=== PATIENT | male | born 1960 | race Caucasian/White ===

== ENCOUNTER 2022-08-14 09:30 | Outpatient (RCR) | payer BC, SELFPAY ==
--- NOTE | 2022-07-21 11:08 | PTOPEVAL1 ---
Assessment and note entered by Claudette Ricardo, PT Evaluation Information Assessment Status Evaluation Diagnosis left knee pain Onset 03/2022 Subjective Information Since March shooting pain in knee, felt like someone sticking a knife in his knee but feels lots better since shot in knee Reported Pain Level Pain Score 3: Self Report Additional Pain Score Comments Pt reports pain stays at a 3/10. States prior to shot knee would pop out and pop right back in only sometimes with stepping on uneven ground, hitting just right Assessment PT Clinical Summary Pt presents w/ c/o L knee pain. Received a shot in his knee 07/12/2022 and reports feels significantly better. Cont to have pain that stays at a 3/10 with tenderness at and below medial jt line. During evaluation demo's mildly decreased range, mildly decreased strength, decreased LLE flexibility, mildly increased laxity with valgus testing, (-)Thessaly's and Willie's testing for meniscus, significant laterally tracking patella. Evaluation suggestive of medial patellotibial ligament and possible MCL irritation likely related to above deficits. Today pt was educated on findings, plan with therapy to address deficits addressed above with focus on improving patellar tracking. Also encouraged pt to use arch supports as with walking, his arches are noted to fall causing supination and increased valgus stress on his knees. Goals for patient are to reduce pain to 0/10, and allow him to return to high level activities such as pickle ball without pain or injury. Plan of Care Interventions Electrical Stimulation,Hot Pack/Cold Pack,Manual Therapy,Neuro Re-education,Patient/Caregiver Educati,Therapeutic Activities,Therapeutic Exercise,Ultrasound Other Interventions Taping for patellar tracking, body mechanics for high level acivities PT Services Indicated Yes Treatment Frequency and 2x weekly x 4 weeks Duration These treatments will address the objective and functional deficits as defined above. The patient will be advanced safely and appropriately in order for the patient to progress towards his/her prior level of function. Additional exercises will be introduced and as well as a comprehensive home exercise program upon discharge, if needed, ?to ensure carryover of functional gains achieved in the clinic. This treatment plan has been reviewed and agreement upon by the patient.
--- NOTE | 2022-08-15 17:19 | BUPTOPDC ---
Assessment and note entered by Claudette Ricardo, PT Discharge Information Assessment Status Discharge Diagnosis left knee pain Onset 03/2022 Subjective Information Reports cont to have the pain in the inside of the knee, popping has increased again over the weekend. Reports is wearing shoe inserts and has no pain with these. Reports maybe feels stronger with therapy. Less instances of the popping out then right back in but also hasn't been overly active with the weather cooling down and pickle ball season wrapping up Reported Pain Level Pain Score 3: Self Report Assessment PT Clinical Summary Pt presents w/ c/o L knee pain. Received a shot in his knee 07/12/2022 and reports feels significantly better. He has consistently attended therapy however reports pain cont to be a 3/10 most of the time. No longer has increased high levels of pain, reports feels he is stronger , has less instances of knee popping out and back in and demo's improved knee stability and strength in clinic with high level activities such as squats on BOSU ball, step up and down from varying step heights, and was able to somewhat mimc pickle ball activity with Wii Tennis in clinic. However, as he has not made progress for his pain, we are discharging him at this time and referring back to Ortho MD for further options.
== END 2022-09-06 15:47 | disposition home or self-care (01) ==
LOC: ANHHIPT 09:30
PROVIDERS: PCP Family Medicine Sports Medicine; Visit Provider Orthopaedic Surgery
DX: M25.562 Pain in left knee (principal)
CPT/HCPCS: 97014; 97110; 97112; 97140; 97161; 97530; G0283

== ENCOUNTER → 2022-09-29 07:48 | Outpatient (CLI) | payer BC, SELFPAY ==
--- NOTE | ~2022-09-29 | MR_ITS ---
EXAMINATION: MR knee LT wo con DATE: 09/29/2022 08:30 INDICATION: Left knee pain. TECHNIQUE: Magnetic resonance imaging (MRI) of the left knee was performed without intravenous contra st. Sequences included axial PD-weighted FS FSE, coronal PD-weighted FSE and PD-weighted FS FSE, sagi ttal PD-weighted FSE, and sagittal T2-weighted FS FSE. COMPARISON: Left knee radiographs 07/12/2022 FINDINGS: Medial compartment: There is a complex tear involving body and posterior horn of medial meniscus. There is full-thickness cartilage loss of tibial condyle involving the medial articular surface with mild subchondral edema- like marrow signal intensity. There is extensive partial thickness cartilage loss of femoral condyle and tibial condyle. There is full-thickness cartilage loss of femoral condyle involving the central a nd medial articular surface. Osteophytes are noted. Lateral compartment: Lateral meniscus is normal. There is cartilage surface irregularity of tibial condyle and femoral con dyle. Osteophytes are noted. Patellofemoral compartment: There is deep partial thickness cartilage loss of patellar medial facet and shallow partial-thickness cartilage loss of patellar lateral facet. There is partial-thickness cartilage loss of trochlea, hawk p at the central trochlea. Osteophytes are noted. Ligaments and tendons: Anterior cruciate ligament demonstrates increased signal intensity and some lax fibers, consistent wi th partial tear. Posterior cruciate ligament is normal. Medial collateral ligament is intact. There i s thickening of the iliotibial band with edema between the iliotibial band and lateral femoral condyl e, which may be seen with iliotibial band friction syndrome. There is mild patellar tendinopathy. Fluid: There is a moderate-sized knee joint effusion. There is a moderate-sized Gallagher's cyst. There is mild prepatellar and superficial infrapatellar bursitis. IMPRESSION: 1. Severe chondrosis of medial compartment, moderate chondrosis of patellofemoral compartment, and mi ld chondrosis of lateral compartment. 2. Tear of medial meniscus. 3. Partial tear of anterior cruciate ligament. 4. Iliotibial band friction syndrome. 5. Moderate-sized knee joint effusion. 6. Moderate-sized Gallagher's cyst. Reviewed, dictated and finalized at location A. NING PERSONNEL SUPERVISOR IMPRESSION: 1. Severe chondrosis of medial compartment, moderate chondrosis of patellofemor al compartment, and mild chondrosis of lateral compartment. 2. Tear of medial meniscus. 3. Partial tear of anterior cruciate ligament. 4. Iliotibial band friction syndrome. 5. Moderate-sized knee joint effusion. 6. Moderate-sized Gallagher's cyst.
== END ==
PROVIDERS: PCP Family Medicine Sports Medicine; Visit Provider Nurse Practitioner
DX: S83.242A Other tear of medial meniscus, current injury, left knee, initial encounter (principal); M25.462 Effusion, left knee; M71.22 Synovial cyst of popliteal space [Baker], left knee; S83.512A Sprain of anterior cruciate ligament of left knee, initial encounter
CPT/HCPCS: 73721

== ENCOUNTER 2022-11-06 08:03 | Outpatient (CLI) | payer BC, SELFPAY ==
[2022-11-06 09:49] LABS: Hemoglobin A1C 5.4 % (<5.7)
[2022-11-06 09:54] LABS: Urine Cotinine NEGATIVE
== END 2022-11-06 08:04 | disposition home or self-care (01) ==
PROVIDERS: PCP Family Medicine Sports Medicine; Visit Provider Orthopaedic Surgery
DX: Z01.812 Encounter for preprocedural laboratory examination (principal); M17.12 Unilateral primary osteoarthritis, left knee
CPT/HCPCS: 80307; 83036; 86850; 86900; 86901; 87081

== ENCOUNTER 2022-11-13 00:16 | Day surgery (SDC) | payer BC, SELFPAY ==
[2022-11-06 08:12] VITALS: BMI 33.1
--- NOTE | 2022-11-06 08:30 | PC.NURSE ---
Report to the Outpatient Waiting Room, entrance under the green pavilion located off [facility], at time __0600 on date __11/13/22 . Planned Procedure Time: _0730 . Time changes happen often and if your time is changed the preop area will call you the afternoon before. - You and your visitor will be asked to self-screen and do not enter if you have any COVID symptoms. - Only one visitor is requested with a max of two and NO children visitors are allowed at this time. - The patient visitor may be requested to leave or wait in car when not with patient due to distancing restrictions. - A mask is optional within the hospital. Patients may have clear liquids (water, carbonated beverages, clear teas, apple juice) until 3 hours prior to surgery with a maximum of 20 ounces. - No food from midnight until time of surgery - Infants may have breast milk until 4 hours before surgery, formula 6 hours prior to surgery. - Children will be allowed to drink immediately following surgery. If applicable, please bring a bottle or sippy cup to assist with drinking. Juice, water, soda, and popsicles are readily available. For infants on formula, please bring formula the day of surgery. Pacifiers are allowed. Take the following medications with a SIP of water the morning of surgery: NONE Medications to discontinue per physician ____TUMS 3 DAYS PRE OP LAST DOSE 11/09/22 Please no make-up, nail japanese, hairspray, perfume, deodorant, or body powder the day of surgery. No jewelry (including any body piercings) or valuables the day of surgery, leave them at home. Please take a shower or bath the night before, or the morning of, surgery with an antibacterial soap. Wear comfortable, loose fitting clothing. Children are encouraged to wear pajamas. - Jewelry must be removed prior to entering the operating room. Rings and piercings that are not removed may be cut off. - The hospital will not accept responsibility for valuables. - Please leave all valuables, including medications, at home the day of surgery. If you are going home after surgery, a licensed lifter driver must drive you home. - NO public transportation without another adult if you receive anesthesia. - We recommend that an adult stay with you for 24 hours following discharge. - We also recommend that you do not drive, make important decision, drink alcoholic beverages, or take any drugs that were not prescribed by your health care provider for at least 24 hours after your discharge time. Follow any additional instructions given to you from your surgeon. If you or anyone in your household have experienced Covid symptoms in the past week, please notify your surgeon or the nurse liaison at the phone number below for possible testing. VERBAL AND WRITTEN instructions given to PATIENT and asked if any additional questions and then verbalized understanding. Patient advised to call surgeon office or pre surgery nurse liaison [phone] if any additional questions.
[2022-11-06 08:41] VITALS: BP 168/90; PULSE 64; RESP 18; TEMP 36.7; O2SAT 99
[2022-11-13] VITALS (15 sets, daily range): BP systolic 110–157; BP diastolic 64–100; PULSE 65–87; RESP 10–20; TEMP 36.3–36.5; O2SAT 96–100
--- NOTE | ~2022-11-13 | XR_ITS ---
EXAMINATION: XR knee LT 2V DATE: 11/13/2022 10:31 INSTRUMENTATION TECH INDICATION: Left total knee arthroplasty TECHNIQUE: 2 views left knee FINDINGS: There is a left total knee arthroplasty in expected position. Subcutaneous gas with fluid and air in the joint are consistent with recent surgery. No evidence of periprosthetic fracture. IMPRESSION: 1. Recent left total knee arthroplasty. Reviewed, dictated and finalized at location A. RUMENTATION TECH
[2022-11-13] MEDS: ACETAMINOPHEN 500 MG TABLET 1000 MG PO (06:21)
--- NOTE | 2022-11-13 06:39 | P.PNAN_ITS ---
Anes - Initial Pre Proc Eval Procedure: Operation Date: 11/13/22 07:30 Proposed Procedures p Left Total Knee Arthroplasty - Camron Salcedo MD Date/Time: 11/13/22 06:39 Surgeon: Camron Salcedo MD Pre Op Diagnosis: OA left knee Patient Data Age: 62 Gender: M Height: 1.85 m Weight: 113 kg Last Vital Signs Temp 36.3 C L 11/13/22 06:23 Pulse 69 11/13/22 06:23 Resp 16 11/13/22 06:23 BP 150/88 H 11/13/22 06:23 Pulse Ox 97 11/13/22 06:23 O2 Del Method Room Air 11/13/22 06:23 Allergies Allergy/AdvReac Type Severity Reaction Status Date / Time No Known Drug Allergies Allergy Mild no drug Verified 11/13/22 06:19 allergies Home Medications Medication Instructions Recorded Confirmed Type calcium carbonate 200 mg calcium 200 mg PO PRN PRN Heartburn 11/06/22 11/13/22 History (500 mg) chewable tablet (Tums) ibuprofen 600 mg tablet 600 mg PO Q6H PRN Pain 11/06/22 11/13/22 History losartan 50 mg tablet 50 mg PO DAILY 11/06/22 11/13/22 History rivaroxaban 10 mg tablet (Xarelto) 10 mg PO DAILY 14 days #14 tabs 11/08/22 11/08/22 Rx Patient hx anesthesia problems: none Family hx anesthesia problems: none Results Review: All pre-operative results and documents have been reviewed as part of the pre- operative evaluation. [facility] Past Medical History Medical History (Updated 11/10/22 @ 15:35 by Viktor Anderson DO) Hypertension Primary osteoarthritis of left knee Surgical History Surgical History History of arthroscopy of left knee Meniscal repair in the and History of shoulder surgery right- 1997 Family History Family History Father Cancer Sibling Cancer Mother Hypertension Heart disease Social History Social History Smoking status: Never smoker Additional smoking assessment comments: DENIES ANY FORM OF TOBACCO USE Alcohol intake: current Drinks per week: 6 Substance use: never Living arrangements: with family 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 Informed Consent: The patient's anesthetic plan and its attendant risks and benefits were discussed with the patient/family/POA. Questions were solicited and answers provided to the satisfaction of the patient/family/POA.
[2022-11-13] MEDS: LACTATED RINGERS 1,000 ML 30 ML IV CONT ×2 (06:48→10:15)
[2022-11-13] MEDS: TRANEXAMIC ACID 1,000MG/ISO100 1,000 MG/100 ML BAG 200 MG IVPB (07:02)
--- NOTE | 2022-11-13 07:12 | WPDHPUPDATE1 ---
History and Physical Update Update Date/Time: 11/13/22 07:12 History and Physical has been reviewed, including an updated exam of the patient. There are NO changes in the patient's condition. Risks, benefits, and alternatives have been discussed and questions answered. Patient agrees to proceed with procedure.
[2022-11-13] MEDS: ceFAZolin 2 GM/D5W 50 ML 2 GM/50 ML BAG IVPB ×3 (07:33→22:55)
--- NOTE | 2022-11-13 07:59 | WPDANESPNB ---
Anes - Peripheral Nerve Block Date/Time: 11/13/22 07:59 I have discussed with the patient/family/POA the placement of a peripheral nerve block for post-operative pain management, including associated risks, benefits, complications, and side effects. Alternative methods of post-operative analgesia were detailed. Questions were solicited and answers provided to the satisfaction of the patient/family/POA. Time-Out: A pre-procedural Time-Out was completed immediately before starting the procedure and confirmed: Patient Identification, Site, Procedure, Patient Position and the Availability of Requisite Equipment. Clinical Indications: Acute post-operative pain management requested by the operative surgeon. Nerve Block Insertion Note Anes-nerve block: adductor canal left Patient position: supine Skin prep: chlorhexidine Needle: 22 gauge, stimulating, insulated echogenic needle. Needle length: 80 mm Technique: ultrasound Injectate: bupivacaine 0.5% with epi 5 mcg/ml (30cc - no epi) Observations: tolerated well Complications: none Procedure start time:: 717 Procedure end time:: 721
--- NOTE | 2022-11-13 10:06 | P.OP_ITS ---
Procedure Note - Detailed Date of Procedure 11/13/22 Pre-op Diagnosis OA left knee Post-op Diagnosis Same Procedure Performed Left total knee replacement Surgeon Camron Salcedo MD Public Administration Teacher [facility] Description of Procedure The patient was identified and proper site identified. In the preop holding area the anesthesia team performed a left lower extremity sub sartorial block after which the patient was taken to the operating room and transferred to the OR table positioning supine taking care to pad the torso and extremities. After spinal anesthetic was administered, a nonsterile tourniquet was placed high on the left thigh. The left lower extremity was prepped and draped in the usual sterile fashion. The extremity was exsanguinated and with the knee flexed tourniquet was inflated to 300 mmHg remaining up for approximately 73 minutes. An anterior midline incision was made and a modified medial parapatellar approach was used. Infra and suprapatellar fat pads were excised. Patella was resected leaving 16 mm thickness and prepared for the size 34 round three peg component. Using the intramedullary guide the distal femur was cut in the proper orientation for the size 75 femoral component. Using the extramedullary guide the tibia was cut perpendicular to the long axis protecting collateral ligaments and popliteal structures. It was sized to a 79. Flexion and extension gaps were balanced. Trial reduction was undertaken and the weight- bearing line was noted to passed through the center of the joint. Proximal tibia was drilled and punched in the proper orientation for the real component. Trial components were removed. The bone surfaces were washed with pulsatile lavage and dried. The real components were cemented simultaneously. The knee was held in extension and the patella held clamped until the cement had cured. Excess cement was removed from the joint. After trialing it was determined that the twelfth mm insert gave full range of motion from 0-120 degrees of flexion and the patella tracked in the femoral groove with no lift-off. After final lavage the joint the real size 12 E poly insert was placed and secured with a locking bar. A Betadine and saline wash was placed into the wound and allowed to sit for approximately 3 minutes and then evacuated. Periarticular tissues were infiltrated with 60 cc of the arthroplasty solution. Surgicel powder was applied into the wound during the closure. The extensor mechanism was repaired with #2 Vicryl suture and 0 looped PDS suture. Subcu was reapproximated with 3- 0 Monocryl and 3-0 Quill with tissue adhesive for the skin. A sterile dressing was applied. He tolerated the procedure well, was awakened and extubated, transferred to the bed and was taken to recovery area in stable condition. There were no known intraoperative complications. Perioperative antibiotics were administered. Estimated Blood Loss 150 Tourniquet Time 73 Drains No Packing No Pathology None sent Complications No immediate complications Condition Stable Disposition PACU [facility] Billing Surgery - Charge Forward: Surgery Billing ([id number])
--- NOTE | 2022-11-13 11:39 | SUR.PHASEI ---
1115 Patient meets PACU discharge criteria, unit bed unavailable at this time. Patient placed in extended recovery status.
--- NOTE | 2022-11-13 12:34 | ADMGEN ---
This patient, Gary Fisher, was admitted to [facility]11 at 1222. Patient/family oriented to hospital policies and general routines including ID bracelet, bed and alarms, visiting hours, pain management, procedures, bathroom and other care routines, personal items, smoking policy, room service/diet, and visiting hours. Information on how to activate the Rapid Response Team has been discussed. Patient/Family are encouraged to report perceived risks to care and to ask questions if they do not understand what they are told or what they should do.
[2022-11-13] MEDS: SODIUM CHLORIDE 0.9% IV 1,000 ML 125 ML IV CONT (13:30)
[2022-11-13] MEDS: KETOROLAC 15 MG/ML VIAL (*BKC) IV PUSH ×2 (13:43→17:48)
[2022-11-13] MEDS: oxyCODONE/ACETAMINOPHEN (*CRX) 5-325 MG TABLET 1 TABLET PO ×3 (13:46→20:26)
[2022-11-13] MEDS: SENNA/DOCUSATE SODIUM TABLET 2 TAB PO (16:55)
[2022-11-13] MEDS: FAMOTIDINE 20 MG TABLET PO (20:26)
[2022-11-14] MEDS: KETOROLAC 15 MG/ML VIAL (*BKC) IV PUSH ×2 (00:49→05:30)
[2022-11-14] MEDS: oxyCODONE/ACETAMINOPHEN (*CRX) 5-325 MG TABLET 1 TABLET PO ×3 (00:51→08:44)
[2022-11-14 05:31] VITALS: BP 133/77; PULSE 59; RESP 18; TEMP 36.2; O2SAT 100
[2022-11-14] MEDS: ceFAZolin 2 GM/D5W 50 ML 2 GM/50 ML BAG IVPB (06:29)
--- NOTE | 2022-11-14 07:30 | PM.DS ---
DS: Admitting Diagnosis Discharge Date 11/14/2022 Admitting Diagnosis Left knee osteoarthritis DS: Discharge Diagnosis Discharge Diagnosis (1) Status post total left knee replacement: Code(s): Z96.652 - Presence of left artificial knee joint Status: Acute Plan 62-year-old male postop day 1 after left total knee replacement. Was able to participate well with therapy yesterday. Pain is well controlled, likely still has some affects of the nerve block. Postoperative medications and wound care was discussed with him in detail. He had no further questions. Plan follow-up in 2 weeks for wound check. I did inform him to call our office with any further questions or concerns prior to that follow-up date. DS: Summary Hospital Course Reason for hospitalization: Observation after outpatient procedure Hospital Course: 62-year-old male who underwent left total knee replacement with Dr. Salcedo on 11/13/2022. He was seen by therapy after the procedure yesterday and will do so again this morning. He is tolerating oral intake without nausea. Pain is well controlled. He had an uneventful overnight stay. Incision site is clean and dry without any sign of infection. Plan discharge later today and follow up in the office in 2 weeks. Status at Discharge Functional status at discharge: uses cane/walker Overall status at discharge: patient is progressing back to baseline Time Spent with Patient Time attestation: Total time spent providing and/or coordinating discharge services: Time spent: Less than 30 minutes Exam Const: General: comfortable and no acute distress HENMT: Mouth: Yes moist mucous membranes Eyes: General: appearance normal, both eyes and all related structures Neck: Neck: supple Resp: Effort & Inspection: normal respiratory effort GI: Inspection: non-distended Neuro: Sensory Exam: normal sensation Extrem: Other: Exam of the left knee demonstrates a clean and dry surgical dressing. There is swelling and ecchymosis around the surgical site and into the left lower leg, consistent with recent total knee. He is able to wiggle his toes and dorsiflex/plantar flex the foot without difficulty. Calves negative. Neurovascular status left lower extremity is intact. Psych: Mental Status: mental status grossly normal Radiology Reports: Comments: EXAMINATION: XR knee LT 2V DATE: 11/13/2022 10:31 [employer] INDICATION: Left total knee arthroplasty TECHNIQUE: 2 views left knee FINDINGS: There is a left total knee arthroplasty in expected position.? Subcutaneous gas with fluid and air in the joint are consistent with recent surgery. No evidence of periprosthetic fracture. IMPRESSION: 1.? Recent left total knee arthroplasty. Discharge Plan Discharge Patient Disposition: Home, Self-Care Discharge Instructions: 3 times daily for 20 minutes each time, reclining in bed with ice packs over the incision and a pillow underneath the calf of the affected leg, not under the knee. Your wound is glued so it is okay to remove the dressing, get into the shower and get the wound wet in two days. Be sure to read through all the information that came from a my office and the hospital. Most of the answers you will need can be found that material. Call the office with any questions that you cannot find answers to, or concerns you may have. After the Xarelto is completed, start taking one coated 325 mg aspirin daily and do this for four more weeks. Please call [facility] at as soon as possible to arrange for/verify your follow-up appointment to be seen in 2 weeks. Also, call the office with any orthopedic/surgical related questions prior to follow-up. Be sure to get up and move around several times daily but do not overdo it. Take the arthritis formula Tylenol 650 mg tablet on an 8 hour schedule. A good 8 hour schedule is: 6:00 a.m., 2:00 p.m., 10:00 p.m. you may take the prescribed pain medication along w
[2022-11-14 08:00] VITALS: BP 135/81; PULSE 70; RESP 16; TEMP 36.6; O2SAT 100
[2022-11-14] MEDS: polyethylene glycoL 3350 17 GM POWD.PACK PO (08:04)
[2022-11-14] MEDS: FAMOTIDINE 20 MG TABLET PO (08:06)
[2022-11-14] MEDS: RIVAROXABAN 10 MG TABLET PO (08:06)
[2022-11-14] MEDS: LOSARTAN POTASSIUM 50 MG TABLET PO (08:06)
[2022-11-14] MEDS: SENNA/DOCUSATE SODIUM TABLET 2 TAB PO (08:07)
--- NOTE | 2022-11-14 10:08 | WPDANESPN ---
Anes - Prog Note Post-Op Date/Time: 11/14/22 10:08 Cardiovascular status: normal Respiratory status: normal Airway patency: baseline Mental status: baseline Post-Op hydration status: normal Vital Signs: Last Vital Signs Temp 97.8 F 11/14/22 08:00 Pulse 70 11/14/22 08:00 Resp 16 11/14/22 08:00 BP 135/81 11/14/22 08:00 Pulse Ox 100 11/14/22 08:00 O2 Del Method Room Air 11/14/22 08:00 O2 Flow Rate 10 11/13/22 10:15 Pain Score (VAS): 2 I/O: Intake & Output 11/13/22 11/14/22 11/14/22 23:59 07:59 15:59 Intake Total 1040 650 600 Balance 1040 650 600 Post-procedural complaints: none Patient Feedback: Patient satisfied with anesthetic care.pt verbalized good relief with PNB
== END 2022-11-14 10:01 | disposition home or self-care (01) ==
LOC: ANHSURGERY 10:00 → ANHSUROVER 12:30
PROVIDERS: PCP Family Medicine Sports Medicine; Visit Provider Orthopaedic Surgery
PROC: (CPT 27447; principal; 2022-11-13 07:30)
DX: M17.12 Unilateral primary osteoarthritis, left knee (principal); G89.18 Other acute postprocedural pain; I10 Essential (primary) hypertension; Z79.01 Long term (current) use of anticoagulants; E66.9 Obesity, unspecified; Z68.32 Body mass index [BMI] 32.0-32.9, adult
CPT/HCPCS: 27447; 64447; 73560; 97110; 97116; 97161; 97165; 97530; 97535; A9270; C1713; C1776; J0171; J0690; J1100; J1170; J1885; J2250; J2270; J2370; J2405; J2704; J2795; J3010; J7030; J7120

== ENCOUNTER 2022-11-27 09:04 | Outpatient (CLI) | payer BC, SELFPAY ==
--- NOTE | ~2022-11-27 | US_ITS ---
EXAMINATION: US venous doppler [facility] DATE: 11/27/2022 09:40 INDICATION: Other specified soft tissue disorders. TECHNIQUE: Grayscale ultrasound images without and with compression and Doppler ultrasound images of the left lower extremity veins were obtained. COMPARISON: None. FINDINGS: The visualized portions of left common femoral vein, profunda (deep) femoral vein, femoral vein, popl iteal vein, peroneal veins, posterior tibial veins, and greater saphenous vein outflow are patent. IMPRESSION: 1. No deep venous thrombosis. Reviewed, dictated and finalized at location A. ON[employer] SPECIALIST
== END 2022-11-27 09:05 | disposition home or self-care (01) ==
PROVIDERS: PCP Family Medicine Sports Medicine; Visit Provider Nurse Practitioner
DX: M79.89 Other specified soft tissue disorders (principal)
CPT/HCPCS: 93971

== ENCOUNTER 2023-02-15 11:15 | Outpatient (RCR) | payer BC, SELFPAY ==
--- NOTE | 2022-11-20 16:34 | PTOPEVAL1 ---
Assessment and note entered by Claudette Ricardo, PT Evaluation Information Assessment Status Evaluation Diagnosis L total knee replacement Onset 11/13/22 Subjective Information One night in the hospital. No issues with anesthesia. Has his exercises and does them the best he can, swelling is limiting him. States when first getting up from the chair is very stiff but after about a dozen steps is better Reported Pain Level Pain Score 3,8: Self Report Additional Pain Score Comments Pt reports use of circulating ice machine, rarely goes more than a half hour without ice during the day. Doesn't ice at night. Elevates above heart level Assessment PT Clinical Summary RTD 12/04/22 for 6 weeks Pt presents s/p L TKR on 11/13/22. Reports is performing icing, elevation, and medication as directed. Was educated on HEP procedures to improve exercises and swelling. Currently pt earnesto' s severe lack of PROM flexion, but appropriate lack of extension for this phase post surgery. Demo's decreased strength and abnormal gait also appropriate for this phase post-op. Pt earnesto's severe swelling throughout LLE, was taped today to reduce swelling and educated on HEP and to get up and walk more often for shorter periods of time to improve swelling reduction. Pt and spouse were also educated on signs and symptoms of infection however at this time, the area around incision and the dressing appear without infection. Pt will greatly benefit from physical therapy in order to address deficits and improve pain and function to return to PLOF Plan of Care Interventions Electrical Stimulation,Gait Training,Hot Pack/Cold Pack,Manual Therapy,Neuro Re-education,Patient/ Caregiver Educati,Therapeutic Activities, Therapeutic Exercise PT Services Indicated Yes Treatment Frequency and 2x weekly x 10 visits Duration These treatments will address the objective and functional deficits as defined above. The patient will be advanced safely and appropriately in order for the patient to progress towards his/her prior level of function. Additional exercises will be introduced and as well as a comprehensive home exercise program upon discharge, if needed, ?to ensure carryover of functional gains achieved in the clinic. This treatment plan has been reviewed and agreement upon by the patient.
--- NOTE | 2023-01-24 17:27 | PTOPPROG ---
Assessment and note entered by Claudette Ricardo, PT Assessment Status Progress Report Diagnosis L total knee replacement Onset 11/13/22 Subjective Information Pt reports feeling 80-85% improved Reports has been able to do a lot more than previously, walking is better, stairs are better. Is going down stairs one over one but very cautiously . Assessment PT Clinical Summary Pt has attended therapy consistently for his left total knee replacement at 2 x weekly x 20 visits. Pt earnesto's increased ROM especially in extension, and appears to have made further gains in flexion since adding moist hot pack modality and [place] tissue mobilization. Earnesto's improved gait cycle, no longer requires AD for appropriate ambulation and is able to navigate steps in a reciprocal motion. Pt does cont to demo decreased active ROM knee flexion in swing phase of gait especially, mild continued edema, and continued soft tissue restriction. Pt would benefit from continued therapy at 2x weekly x 5 weeks to continue to focus on ROM and functional use of knee to return to prior level of function Plan of Care Interventions Electrical Stimulation,Gait Training,Hot Pack/Cold Pack,Manual Therapy,Neuro Re-education,Patient/ Caregiver Educati,Therapeutic Activities, Therapeutic Exercise PT Services Indicated Yes Treatment Frequency and 2x weekly x 5 weeks Duration These treatments will address the objective and functional deficits as defined above. The patient will be advanced safely and appropriately in order for the patient to progress towards his/her prior level of function. Additional exercises will be introduced and as well as a comprehensive home exercise program upon discharge, if needed, ?to ensure carryover of functional gains achieved in the clinic. This treatment plan has been reviewed and agreement upon by the patient.
== END 2023-02-16 10:15 | disposition still patient (30) ==
LOC: ANHHIPT 11:15
PROVIDERS: PCP Family Medicine Sports Medicine; Visit Provider Orthopaedic Surgery
DX: Z47.1 Aftercare following joint replacement surgery (principal); Z96.652 Presence of left artificial knee joint
CPT/HCPCS: 97014; 97110; 97112; 97116; 97140; 97162; 97530; G0283

== ENCOUNTER 2023-02-28 10:45 | Outpatient (RCR) | payer BC, SELFPAY ==
--- NOTE | 2023-02-28 16:23 | PTOPDC ---
Assessment and note entered by Claudette Ricardo, PT Assessment Status Discharge Diagnosis L total knee replacement Onset 11/13/22 Subjective Information Pt reports feeling 85-95% improved overall Reports is more confident going up and down steps one over one, no worries about this. Was magda to go golfing twice 9 holes for about 3 hours. No trouble walking on the green none at all . Had some soreness up to a 5/10 the day after golfing but this resolved the next day was short lived . Mostly was stiff getting out of bed the next day. Has been able to push mow grass. Can't think of anything did before surgery other than pickle ball because of the lateral motion. Reports biggest issue is still function. Would like to get to where pain behind the knee would be gone. Reported Pain Level Pain Score 3: Self Report Assessment PT Clinical Summary Pt reports feeling 85-95% improved overall. States is more confident in movement, going up and down steps, is able to golf and push mow his yard. Reports only discomfort is in posterior knee which appears to be muscular in nature. Pt shows full knee extension, no extensor leg with straight leg raise and has normal sit<>stand ability. Pt cont to demo decreased flexion that has remained unchanged. Home exercise program was reviewd, pt feels confident in continuing this independently. Thus patient is being discharged from therapy services for max benefit being met.
== END 2023-03-01 08:29 | disposition home or self-care (01) ==
LOC: ANHHIPT 10:45
PROVIDERS: PCP Family Medicine Sports Medicine; Visit Provider Orthopaedic Surgery
DX: Z47.1 Aftercare following joint replacement surgery (principal); Z96.652 Presence of left artificial knee joint
CPT/HCPCS: 97110; 97140

== ENCOUNTER → 2023-10-23 12:48 | Outpatient (CLI) | payer BC, SELFPAY ==
--- NOTE | ~2023-10-23 | XR_ITS ---
EXAM: XR knee LT 3V DATE: 10/23/2023 13:05 HISTORY: Z96.652 - Presence of left artificial knee joint . COMPARISON: 01/09/2023, images only. FINDINGS: Decreased mineralization. No fracture or dislocation. No lytic or blastic lesion. Uncompli cated left knee arthroplasty hardware. Small-volume joint fluid. No erosion or periosteal change. Sof t tissues within normal limits. IMPRESSION: Left knee arthroplasty. No radiographic evidence of hardware-related complication. Small left knee joint effusion. Reviewed, dictated and finalized at location K. [employer]MER IMPRESSION: Left knee arthroplasty. No radiographic evidence of hardware-relate d complication. Small left knee joint effusion.
== END ==
PROVIDERS: PCP Orthopaedic Surgery; Visit Provider Orthopaedic Surgery
DX: Z96.652 Presence of left artificial knee joint (principal)
CPT/HCPCS: 73562